=== PATIENT | female | born 1950 | race Caucasian/White ===

== ENCOUNTER 2016-05-21 15:08 | Outpatient (CLI) | payer OTHER ==
[~2016-05-21] VITALS: Ht 152.4 cm; Wt 65.9 kg
[~2016-05-21 15:08] MED LIST: ADVIL PO; OMEP20CA16 PO; ZOFRAN PO
[2016-05-21 15:24] VITALS: BP 121/60; PULSE 70; RESP 16; Ht 152.4 cm; Wt 65.9 kg
--- NOTE | 2016-05-21 16:00 | CONS ---
Date/Time of Note Date/Time of Note DATE: 05/21/16 TIME: 15:42 Assessment/Plan Assessment/Plan Additional Assessment/Plan [facility] SUBSEQUENT OUTPATIENT CONSULTATION NOTE ASSESSMENT AND PLAN: A very-pleasant 65-year-old lady well known to me from prior visit in Apr 2015 with past medical history significant for prior episode of pancreatitis and evaluated by us in Apr 2015 for calcification in head of pancreas that appeared to be benign, here for follow up at request of Dr. Palomo who did her upper endoscopy Nov 2015 (large hiatal hernia with pangastritis; treated successfully with PPI's). After careful review of her data and doing a complete history and physical, I am still comfortable that the pancreas process is much more likely to be due to consequence of her pancreatitis, and I do not see any need for surgical intervention for her hiatal hernia. There is currently no indication for acute surgical intervention. I also do not see a major reason to have the patient undergo further surveillance unless the patient becomes symptomatic. I explained the anatomy as well as the natural history and pathophysiology of her disease processes to the patient in detail and reviewed the reasoning behind my recommendations. The patient appeared to understand and agreed with the proposed plan of care. With above assessment, I've recommended the followin. Symptomatic follow-up with primary care physician as well as with gastroenterology 2. Follow-up with us when necessary Thank you very much for having me involved in the care of this very pleasant lady and her wonderful family. I will continue to follow her along with you as an outpatient and will be available to answer any questions at area code . TOTAL VISIT TIME: 45 minutes of which more than half was spent in [id number] discussion with the patient as well as coordination of care between multiple physicians and providers. Disclaimer: Inadvertent spelling and grammatical errors are likely due to EHR/ dictation software use and do not reflect on the quality of delivered patient care. PLACE OF SERVICE: [facility] DATE OF CONSULTATION: 05/21/2016 REASON FOR CONSULTATION: Follow up for uncinate process pancreas lesion REFERRING PHYSICIAN: Zarina Pereira MD and Pasquale Palomo MD Dear Dr. Pereira and Dr. Palomo: Thank you very much again for asking me to remain involved as a inbound sales consultant in the management of Kristina Yates. HISTORY OF PRESENT ILLNESS: The patient is a very pleasant 65-year-old lady well known to me from prior visit in Apr 2015 with past medical history significant for prior episode of pancreatitis and evaluated by us in Apr 2015 for calcification in head of pancreas that appeared to be benign, here for follow up at request of Dr. Palomo who did her upper endoscopy Nov 2015 (large hiatal hernia with pangastritis; treated successfully with PPI's). She has a past medical history significant for prior episode of known and documented pancreatitis 12/13/2013 as well as history of cholecystectomy and appendectomy, who was initially referred to us for evaluation and management of known calcified area in the uncinate process that was evaluated by Dr. Palomo on 2015 with endoscopic ultrasound which was found to have a cystic lesion in the uncinate process that was 3.4 cm x 3 cm in size with the debris seen inside of the cystic areas and presence of a calcified wall. There was no mural nodules. The common bile duct measured 8.5 mm and the pancreatic duct measured 2.4 mm. Liver appeared to be normal. There was also no celiac lymphadenopathy. The overall impression was that of an pancreatic pseudocyst. No new major issues since then. In fact, she reports barely any abdominal symptoms and life in general is good. Today, I had a chance to meet the patient and do a complete H& P. I also gathered some of my information through careful review of the available data. Patient herself is completely asymptomatic. PAST MEDICAL HISTORY 1. History of above-mentioned pancreatitis thought to be due to gallstones 2. Hypertension PAST SURGICAL HISTORY 1. Tubal ligation 2. Laparoscopic cholecystectomy 05/28/2014 3. Laparoscopic appendectomy 02/20/2015 ALLERGIES: NO KNOWN DRUG ALLERGIES MEDICATIONS 1. Omeprazole 2. Zempep SOCIAL HISTORY: The patient lives with family. 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 Has 3 children. - Tob; - ETOH; - IVDU FAMILY HISTORY: There are no significant medical, surgical or oncologic issues in the family as reported by the patient or reflected in the chart. REVIEW OF SYSTEMS: No pertinent positives or negatives in an otherwise complete 14 point review of systems. PHYSICAL EXAMINATION GENERAL: The patient appears to be a very pleasant young lady of descent sitting up in a chair, appearing stated age, slightly overweight and otherwise in no acute distress. BMI 28.4 (previously 26.30 Apr 2015). VITAL SIGNS: AVSS (please also see below) HEENT: Normocephalic and atraumatic. Extraocular muscles and hearing are grossly intact bilaterally and symmetrically. Sclerae are nonicteric. Oral cavity is clear; oral mucosa appear to be pink and moist. Dentition: fair. NECK: Supple. There is no lymphadenopathy or JVD. There is no submental, submandibular or supraclavicular lymphadenopathy. CHEST: Rises symmetrically with each breath; patient is breathing comfortably. There are no audible wheezes, rales or rhonchi on the gross exam. HEART: Pulse is regular and palpable on the right wrist. Capillary refill is normal. Carotid pulses are palpable bilaterally and symmetrically in the neck. EXTREMITIES: Lower extremities contain no pitting edema around the ankles bilaterally and symmetrically. ABDOMEN: Abdomen is soft, nontender and nondistended. No evidence of ascites, organomegaly, caput medusae, engorged subcutaneous veins, or other abnormalities. There are no peritoneal signs or guarding. SKIN: Appears to be pink and feels warm to touch. NEUROLOGIC: Awake, alert, and follows commands appropriately. LABORATORY DATA: See below IMAGING: See electronic chart. Please note that I've personally reviewed all pertinent available images and I agree in general with their overall reported findings. Consultation Date/Type/Reason Admit Date/Time Exam/Review of Systems Vital Signs Vitals Vital Signs Date Time Temp Pulse Resp B/P Pulse Ox O2 Delivery O2 Flow Rate FiO2 05/21/16 15:24 98.0 70 16 121/60 100 Room Air AMANDA AVILA M.D. May 21, 2016 15:52
== END 2016-05-21 16:49 | disposition home or self-care (01) ==
LOC: HPC 15:08
PROVIDERS: ATTEND Transplant Surgery
DX: K86.3 Pseudocyst of pancreas (principal); I10 Essential (primary) hypertension; Z98.51 Tubal ligation status
CPT/HCPCS: G0463

== ENCOUNTER 2016-08-08 09:58 | Day surgery (SDC) | payer OTHER ==
[~2016-08-08] VITALS: Ht 152.4 cm; Wt 65.9 kg
[2016-08-08 10:31] VITALS: Ht 152.4 cm; Wt 65.9 kg
[2016-08-08] MEDS ORDERED: LOSARTAN (10:49)
[2016-08-08] MEDS ORDERED: MVI (10:49)
[2016-08-08 10:53] VITALS: BP 146/79; PULSE 74; RESP 18
[2016-08-08] MEDS ORDERED: FENTAnyl 50 MCG/ML VIAL ONE (11:28)
[2016-08-08] MEDS ORDERED: MIDAZOLAM 1 MG/ML 2 ML INJ ONE ×2 (11:28)
--- NOTE | 2016-08-08 11:58 | GILP ---
DATE OF PROCEDURE: 08/08/2016 PROCEDURE: Colonoscopy. INDICATION: A 65-year-old female undergoing this procedure for screening. The risks of the procedur e, related and unrelated complications, sedative risks, alternatives discussed and informed consent was obtained. DESCRIPTION OF PROCEDURE: The patient was brought to the GI lab, sedated with Versed 4 mg, fentanyl 100 mcg. After optimal sedation scope was passed with much ease into rectum. Digital examination w as done, it was normal. Scope was advanced slowly through sigmoid, descending, transverse colon all the way into cecum. Appendiceal orifice and IC valve identified. While coming out, mucosa thoroug hly inspected. The patient had a moderate sized diverticulosis, some of them [place] especially in the left side of the colon. Small hemorrhoids identified. IMPRESSION: 1. Normal findings all the way into cecum. 2. Moderate degree of diverticulosis especially on the left side of the colon. 3. Small hemorrhoid. 4. Clarity was good. 5. Cleanliness was good to adequate. PLAN: Stay on high fiber diet. Dictated By: ADELA CARNES/GUILLERMO Conf#: [id number] DID#: [id number] CC: ADELA GERARDO MD;*EndCC*
[2016-08-08 12:06] VITALS: BP 115/66; PULSE 72; RESP 18
== END 2016-08-09 08:14 | disposition home or self-care (01) ==
LOC: GIL 09:58
PROVIDERS: ATTEND Internal Medicine Gastroenterology
DX: Z12.11 Encounter for screening for malignant neoplasm of colon (principal); K57.90 Diverticulosis of intestine, part unspecified, without perforation or abscess without bleeding; K64.9 Unspecified hemorrhoids
CPT/HCPCS: 45378; J2250; J3010; Z7610

== ENCOUNTER 2017-01-15 16:28 | Emergency (ER) | payer SELFPAY ==
[~2017-01-15] VITALS: Wt 64.5 kg
[~2017-01-15 16:28] MED LIST changes: -ADVIL PO; +LOSARTAN; +MVI; -ZOFRAN PO
== END 2017-01-15 20:06 | disposition left against medical advice (07) ==
LOC: E/R 16:28
DX: Z53.21 Procedure and treatment not carried out due to patient leaving prior to being seen by health care provider (principal)

== ENCOUNTER 2017-05-08 13:56 | Outpatient (CLI) | END 2017-05-08 15:57 | disposition home or self-care (01) ==